=== PATIENT | male | born 1980 | race Caucasian/White ===

== ENCOUNTER 2019-12-23 14:55 | Emergency (ER) | payer OTHER ==
--- OUTSIDE RECORDS SUMMARY | 2019-12-23 15:00 | XMS ---
:1980 Author Organization [facility] Care Team Providers Name Role Phone Joo GUILLERMO Unavailable Unavailable Danyel Unavailable [phone] Lisa Lisa MD Unavailable Unavailable Sloan R MD Unavailable Unavailable Sloan R MD Unavailable Unavailable Sloan R MD Unavailable Unavailable Sloan R MD Unavailable Unavailable Sloan R MD Unavailable Unavailable Sloan R MD Unavailable Unavailable STEFANY FELIPE Unavailable Unavailable MENLA SARBJIT Unavailable Unavailable HHHVCC Unavailable Unavailable HHHVCC Unavailable Unavailable MD SOMMER Unavailable Unavailable Menla Unavailable Unavailable Menla Unavailable Unavailable Menla Unavailable Unavailable Menla Unavailable Unavailable Menla Unavailable Unavailable Menla Unavailable Unavailable Polo Estevez DPM Unavailable Unavailable Polo Estevez DPM Unavailable Unavailable Polo Estevez DPM Unavailable Unavailable Stefany MD Unavailable Unavailable Stefany Unavailable Unavailable MARK TRAMMELL Unavailable Unavailable KURAS Unavailable Unavailable Re-disclosure Warning The records that you are about to access may contain information from federally- assisted alcohol or drug abuse programs. If such information is present, then the following federally mandated warning applies: This information has been disclosed to you from records protected by federal confidentiality rules (42 CFR part 2). The federal rules prohibit you from making any further disclosure of this information unless further disclosure is expressly permitted by the written consent of the person to whom it pertains or as otherwise permitted by 42 CFR part 2. A general authorization for the release of medical or other information is NOT sufficient for this purpose. The Federal rules restrict any use of the information to criminally investigate or prosecute any alcohol or drug abuse patient.The records that you are about to access may contain highly sensitive health information, the redisclosure of which is protected by Article 27-F of the [facility] Public Health law. If you continue you may haveaccess to information: Regarding HIV / AIDS; Provided by facilities licensed or operated by the [facility] Office of Mental Health; or Provided by the [facility] Office for People With Developmental Disabilities. If such information is present, then the following [facility] mandated warning applies: This information has been disclosed to you from confidential records which are protected by state law. State law prohibits you from making any further disclosure of this information without the specific written consent of the person to whom it pertains, or as otherwise permitted by law. Any unauthorized further disclosure in violation of state law may result in a fine or fci sentence or both. A general authorization for the release of medical or other information is NOT sufficient authorization for further disclosure. Encounters Encounter Providers Location Date Indications Data Source(s ) Outpatient Attender: MHAW9 12/07/2019 GSI ([facility] 03:36:38 PM Care [facility] EDT Patient admitted. Outpatient Attender: MHAW9 [facility] 11/18/2019 04:01:49 PM [facility]SI ([facility]) Patient admitted. Outpatient Attender: MMV9 [facility] 11/18/2019 04:01:47 PM [facility]SI ([facility]) Patient admitted. Outpatient Attender: MHAW9 [facility] 11/02/2019 02:32:43 PM GSI ([facility]) Patient admitted. Outpatient Attender: MMVH9 [facility] 11/02/2019 02:32:40 PM [facility]SI ([facility]) Patient admitted. Outpatient Attender: MHAW9 [facility] 10/03/2019 11:22:28 AM [facility]SI ([facility] EDT [facility]) Patient admitted. Attender: [address] 08/20/2019 NEXTGEN (Judit Estevez DPM 12:44:00 PM EDT - [facility] 08/20/2019 Medical 12:44:00 PM EDT Center) Attender: Max Positive 08/14/2019 [facility]EXTGEN ( [facility] 10:21:00 AM EDT - [facility] 08/14/2019 Medical 10:21:00 AM EDT Center) Attender: Max Positive 08/10/2019 NEXTGEN ( [facility] 10:42:00 AM EDT - [facility] [facility] 08/10/2019 Medical 10:42:00 AM EDT Center) Attender: Max Positive 07/20/2019 NEXTGEN ( [facility] 12:43:00 PM EDT - [place] [facility] 07/20/2019 Medical 12:43:00 PM EDT Center) Attender: Max Positive 07/20/2019 NEXTGEN ( [facility] 12:03:00 PM EDT - [place] [facility] 07/20/2019 Medical 12:03:00 PM EDT Center) Attender: Max Positive 07/10/2019 NEXTGEN ( [facility] 10:19:00 AM EDT - [place] [facility] 07/10/2019 Medical 10:19:00 AM EDT Center) Attender: Max Positive 07/02/2019 NEXTGEN ( [facility] 11:27:00 AM EDT - [place] [facility] 07/02/2019 Medical 11:27:00 AM EDT Center) Attender: Max Positive 07/02/2019 NEXTGEN ( [facility] 10:17:00 AM EDT - [place] [facility] 07/02/2019 Medical 10:17:00 AM EDT Center) Attender: Max Positive 06/26/2019 NEXTGEN ( [facility] 10:34:00 AM EDT - [place] [facility] 06/26/2019 Medical 10:34:00 AM EDT Center) Attender: Max Positive 06/25/2019 NEXTGEN ( [facility] 10:05:00 AM EDT - [place] [facility] 06/25/2019 Medical 10:05:00 AM EDT Center) Attender: Max Positive 06/17/2019 NEXTGEN ( [facility] D[facility] 09:38:00 AM EDT - [place] [facility] 06/17/2019 Medical 09:38:00 AM EDT Center) Attender: Max Positive 06/15/2019 NEXTGEN ( [facility] D[facility] 03:19:00 PM EDT - [place] [facility] 06/15/2019 Medical 03:19:00 PM EDT Center) Outpatient Attender: BELKIS Ge 06/09/2019 [facility] Tip valery TAMAYO 02:57:00 PM EDT Medical Center MARIAAdmitter: BELKIS TRAMMELLReferrer: BELKIS TRAMMELL OutpatientOFFICE/O Attender: Sarbjit [facility] 06/09/2019 NE XTGEN ([facility] VISIT, Menla 02:57:00 PM EDT - [facility] EST 06/09/2019 Medical 02:57:00 PM EDT Center) Outpatient 06/09/2019 [facility] 10:43:00 AM EDT Medical C enter Outpatient 06/09/2019 [facility] 12:00:00 AM EDT Medical C enter Attender: Max Cruz 06/08/2019 NEXTGEN ( [facility] 01:45:00 PM EDT - [place] [facility] 06/08/2019 Medical 01:45:00 PM EDT Center) Outpatient 06/08/2019 [facility] 11:42:00 AM EDT Medical C enter Outpatient Attender: BELKIS Ge 06/08/2019 [facility] Tip valery MARK TAMAOY 10:35:00 AM EDT Medical Center MARIAAdmitter: BELKIS TRAMMELLReferrer: BELKIS TRAMMELL Attender: Sarbjit [facility] 06/08/2019 NEXTGEN (S aint [place] 10:35:00 AM EDT - [facility] 06/08/2019 Medical 10:35:00 AM EDT Center) Outpatient 06/08/2019 [facility] 12:00:00 AM EDT Medical C enter Attender: Max Cruz 06/04/2019 NEXTGEN ( [facility] D[facility] 08:56:00 AM EDT - [place] [facility] 06/04/2019 Medical 08:56:00 AM EDT Center) Attender: Max Positive 06/01/2019 NEXTGEN ( [facility] 11:15:00 AM EDT - [place] [facility] 06/01/2019 Medical 11:15:00 AM EDT Center) Attender: Max Positive 05/27/2019 NEXTGEN ( [facility] 11:31:00 AM EDT - [place] [facility] 05/27/2019 Medical 11:31:00 AM EDT Center) Attender: Sarbjit Leal [facility] 05/26/2019 NEXTGEN (S aint [place] 04:28:00 PM EDT - [facility] 05/26/2019 Medical 04:28:00 PM EDT Center) Attender: Max Positive 05/25/2019 NEXTGEN ( [facility] 03:41:00 PM EDT - [place] [facility] 05/25/2019 Medical 03:41:00 PM EDT Center) Attender: Max Positive 05/22/2019 NEXTGEN ( [facility] 02:09:00 PM EDT - [place] [facility] 05/22/2019 Medical 02:09:00 PM EDT Center) Attender: Max Positive 05/21/2019 NEXTGEN ( [facility] 01:16:00 PM EDT - [place] [facility] 05/21/2019 Medical 01:16:00 PM EDT Center) Outpatient 05/18/2019 [facility] 10:56:00 AM EDT Medical C enter Outpatient 05/18/2019 [facility] 12:00:00 AM EDT Medical C enter Attender: Max Positive 05/15/2019 NEXTGEN ( [facility] 11:18:00 AM EDT - [place] [facility] 05/15/2019 Medical 11:18:00 AM EDT Center) Attender: Max Positive 05/12/2019 NEXTGEN ( [facility] 04:07:00 PM EDT - [place] [facility] 05/12/2019 Medical 04:07:00 PM EDT Center) Outpatient 05/11/2019 [facility] 12:24:00 PM EDT Medical C enter Outpatient 05/11/2019 [facility] 12:00:00 AM EDT Medical C enter Attender: Max Positive 05/08/2019 NEXTGEN ( [facility] 11:31:00 AM EST - [place] [facility] 05/08/2019 Medical 11:31:00 AM EST Center) Attender: Max Positive 05/05/2019 NEXTGEN ( [facility] 03:44:00 PM EST - [place] [facility] 05/05/2019 Medical 03:44:00 PM EST Center) Outpatient 05/05/2019 [facility] 11:35:00 AM EST Medical C enter Outpatient 05/05/2019 [facility] 12:00:00 AM EST Medical C enter Attender: Max Positive 05/01/2019 NEXTGEN ( [facility] 11:03:00 AM EST - [place] [facility] 05/01/2019 Medical 11:03:00 AM EST Center) Outpatient 04/30/2019 [facility] 03:17:00 PM EST Medical C enter Outpatient 04/30/2019 [facility] 12:00:00 AM EST Medical C enter Attender: Max Positive 04/24/2019 NEXTGEN ( [facility] 02:39:00 PM EST - [place] [facility] 04/24/2019 Medical 02:39:00 PM EST Center) Attender: Max Positive 04/23/2019 NEXTGEN ( [facility] 12:45:00 PM EST - [place] [facility] 04/23/2019 Medical 12:45:00 PM EST Center) Outpatient Attender: MHAW9 04/21/2019 [facility] ([facility] 11:50:25 AM EST [facility]) Patient admitted. Attender: Max Positive 04/17/2019 NEXTGEN ( [facility] 02:49:00 PM EST - [place] [facility] 04/17/2019 Medical 02:49:00 PM EST Center) Attender: Max Positive 04/14/2019 NEXTGEN ( [facility] 04:56:00 PM EST - [place] [facility] 04/14/2019 Medical 04:56:00 PM EST Center) Attender: Max Positive 04/10/2019 NEXTGEN ( [facility] 10:18:00 AM EST - [place] [facility] 04/10/2019 Medical 10:18:00 AM EST Center) Outpatient Attender: MARY Ge 04/09/2019 [facility] RODRIGUEZdmitter: 09:35:00 AM EST Med ica Center MARY Buenorer: MARY GUILLERMO Attender: Max Positive 04/08/2019 NEXTGEN ( [facility] 02:21:00 PM EST - [place] [facility] 04/08/2019 Medical 02:21:00 PM EST Center) Outpatient Attender: MARY Ge 04/08/2019 [facility] JENNIFERdmitter: 11:44:00 AM EST Med [facility] Center MARY Monroeferrer: Rosalio Lisa MD Outpatient Attender: BELKIS Ge 04/07/2019 [facility] FLORESDORI TAMAYO 01:12:00 PM EST Medical Center MARIAAdmitter: BELKIS TRAMMELLReferrer: BELKIS TRAMMELL OutpatientOFFICE/O Attender: Sarbjit [facility] 04/07/2019 NE XTGEN ([facility] UTPATIENT VISIT, Menla 01:12:00 PM EST - J osep EST 04/07/2019 Medical 01:12:00 PM EST Center) Outpatient 04/07/2019 [facility] 11:49:00 AM EST Medical C enter Outpatient 04/07/2019 [facility] 12:00:00 AM EST Medical C enter OutpatientOFFICE/O Attender: Felipe Positive 04/06/2019 N EXTGEN ([facility] Stefany ALEJANDRE Directions 12:56:00 PM EST - J osep EST 04/06/2019 Medical 12:56:00 PM EST Center) Attender: Max Positive 04/03/2019 NEXTGEN ( [facility] Danyel Directions 02:06:00 PM EST - [place] [facility] 04/03/2019 Medical 02:06:00 PM EST Center) Attender: Sarbjit [address] [place] [address] 03/31/2019 NEXTGEN (S opal [place] 03:55:00 PM EST - [facility] 03/31/2019 Medical 03:55:00 PM EST Center) Attender: Max Positive 03/31/2019 NEXTGEN ( [facility]any[facility] Directions 09:30:00 AM EST - [place] [facility] 03/31/2019 Medical 09:30:00 AM EST Center) Outpatient Attender: ANNIA Ge 03/30/2019 [facility] MENLA 02:05:00 PM EST Medical C enter MIKEAdmitter: ANNIA Dukesferrer: ANNIA SCHAFFER OutpatientOFFICE/O Attender: Sarbjit [facility] 03/30/2019 NE XTGEN ([facility] UTPATIENT VISIT, [place] 02:05:00 PM EST - J osephs EST 03/30/2019 Medical 02:05:00 PM EST Center) Outpatient 03/30/2019 [facility] 10:28:00 AM EST Medical C enter Outpatient 03/30/2019 [facility] 12:00:00 AM EST Medical C enter Attender: Max Positive 03/27/2019 NEXTGEN ( [facility] 12:19:00 PM EST - [place] [facility] 03/27/2019 Medical 12:19:00 PM EST Center) Attender: Max Positive 03/25/2019 NEXTGEN ( [facility] 10:08:00 AM EST - [place] [facility] 03/25/2019 Medical 10:08:00 AM EST Center) Attender: Max Positive 03/24/2019 NEXTGEN ( [facility] 04:20:00 PM EST - [place] [facility] 03/24/2019 Medical 04:20:00 PM EST Center) Attender: Max Positive 03/20/2019 NEXTGEN ( [facility] 01:45:00 PM EST - [place] [facility] 03/20/2019 Medical 01:45:00 PM EST Center) Attender: Max Positive 03/19/2019 NEXTGEN ( [facility] 04:36:00 PM EST - [place] [facility] 03/19/2019 Medical 04:36:00 PM EST Center) Attender: Max Positive 03/13/2019 NEXTGEN ( [facility] 02:01:00 PM EST - [place] [facility] 03/13/2019 Medical 02:01:00 PM EST Center) Attender: Max Positive 03/11/2019 NEXTGEN ( [facility] 03:23:00 PM EST - [place] [facility] 03/11/2019 Medical 03:23:00 PM EST Center) Attender: Felipe Positive 03/09/2019 NEXTGEN ( [facility] Stefany MD Directions 12:55:00 PM EST - [facility] 03/09/2019 Medical 12:55:00 PM EST Center) Attender: Max Positive 03/09/2019 NEXTGEN ( [facility] 09:06:00 AM EST - [place] [facility] 03/09/2019 Medical 09:06:00 AM EST Center) Outpatient Attender: MHAW9 03/06/2019 [facility]SI ([facility] 01:11:26 PM EST [facility]) Patient admitted. Outpatient Attender: MMVH9 [facility] 03/06/2019 01:11:23 PM [facility] ([facility]) Patient admitted. Outpatient Attender: MHAW9 [facility] 03/06/2019 01:11:06 PM [facility] ([facility]) Patient admitted. Outpatient Attender: MMVH9 [facility] 03/06/2019 01:11:04 PM [facility]SI ([facility]) Patient admitted. Outpatient Attender: FELIPE STEFANY H 03/04/2019 Leonel Savage ARNABAdmitter: FELIPE 12:00:00 PM [facility] Medical Center STEFANY FELIPE Attender: Felipe Stefany Positive 03/04/2019 LIV TGFELICITA ([facility] 12:00:00 PM EST - [facility] 03/04/2019 Medical 12:00:00 PM EST Center) Attender: Max Howard Positive 02/27/2019 NEXT GEN ([facility] 01:51:00 PM EST - [facility] 02/27/2019 Medical 01:51:00 PM EST Center) Attender: Max Howard Positive 02/27/2019 NEXT GEN ([facility] 09:43:00 AM EST - [facility] 02/27/2019 Medical 09:43:00 AM EST Center) Attender: Max Howard Positive 02/20/2019 NEXT GEN ([facility] 11:54:00 AM EST - [facility] 02/20/2019 Medical 11:54:00 AM EST Center) Attender: Max Howard Positive 02/19/2019 NEXT GEN ([facility] 04:59:00 PM EST - [facility] 02/19/2019 Medical 04:59:00 PM EST Center) Attender: Max Howard Positive 02/13/2019 NEXT GEN ([facility] 11:15:00 AM EST - [facility] 02/13/2019 Medical 11:15:00 AM EST Center) Outpatient Attender: FELIPE MCCALL H 02/09/2019 Leonel MAXWELLABAdmitter: FELIPE 12:00:00 PM [facility] Medical Center STEFANY FELIPE Attender: Felipe Stefany Positive 02/09/2019 NEX TGEN ([facility] 12:00:00 PM EST - [facility] 02/09/2019 Medical 12:00:00 PM EST Center) Attender: Max Carranza Positive 02/09/2019 NEXT GEN ([facility] 10:39:00 AM EST - [facility] 02/09/2019 Medical 10:39:00 AM EST Center) Emergency H 12/23/2018 [facility] 12:02:00 PM EDT - Medical Center 12/23/2018 02:15:00 PM EDT Patient discharged. Outpatient Attender: STEPHANIA PETTIT 08/11/2018 10:49:00 AM Francis SHIRAZdmitter: ROSALIO MURPHY EDT - 03/18/2019 Hospital 12:55:00 PM EST Patient discharged. Medications Medication Brand Start Product Dose Route [facility] Indications Reaction Description Data Name Date Form Instructions Instructions Source(s) Naltrexone naltre . ORAL active take 1 N EXTGEN hydrochlori xone 2019 {tbl} tablet by (S aint de 50 MG 50 mg 12:00: oral route Atiya sephs Oral Tablet tablet 00 AM every day [facility] naltrexone EST [place]) 50 mg tablet Naltrexone naltre . ORAL complet take 1 NEXTGEN hydrochlori xone 2019 {tbl} ed tablet by (S aint de 50 MG 50 mg 12:00: oral route Atiya sephs Oral Tablet tablet 00 AM every day [facility] naltrexone EST [place]) 50 mg tablet Medication administered onsite Naltrexone naltrexone 03/09/2019 1.00 ORAL completed take 1 NEXTGEN hydrochloride 50 mg tablet 12:00:00 AM {tbl} tablet ([facility] 50 MG Oral EST by oral [place] [facility] Tablet route Medical naltrexone 50 every Cente r) mg tablet day Insurance Providers Payer name Policy type Policy ID Covered Covered alliance party's Policy P ralph / Coverage alliance party ID relationship to Obrien Inf ormation type obrien [place]IA [place] [id number] SP [id number] 300 HEALTH NON CAP [place] CARE W [id number] 01 [id number] [place] [id number] 01 [id number] W [id number] 01 [id number] [place] CARE W [id number] 01 [id number] [place] W [id number] 01 [id number] [place] W [id number] 01 [id number] 300 [place] CARE W [id number] 01 [id number] SELF PAY 0000 Self 0000 MEDICAID OP [id number] Self [id number] [facility] MAR[place] [id number] Self [id number] CARE BETTER [id number] PT [id number] HEALTH/DOMINICK IS SELF PAY 0 Self 0 MEDICAID OP [id number] Self [id number] [facility] MARIA VICTOR[place] [id number] Self [id number] CARE Medicaid [id number] S [id number] Regular Clinic Visit MVP Medicaid [id number] S [id number] Z [facility] Care [facility] [id number] S [id number] FFS Medicaid Problems, Conditions, and Diagnoses Code Display Name Description Problem Type Effective Data Dates Source(s) Z11.4 Encounter for ENCOUNTER FOR Diagnosis 06/09/2019 [facility] screening for human SCREENING FOR HUMAN 02:57:0 0 PM [facility] immunodeficiency IMMUNODEFICIENCY [facility] dical virus [HIV] VIRUS Center Z71.3 Dietary counseling DIETARY COUNSELING Diagnosis 0 [facility] and surveillance AND SURVEILLANCE 02:57:00 PM [facility] Z68.21 Body mass index BODY MASS INDEX Diagnosis 06/09/2019 Yaneth t (BMI) 21.0-21.9, (BMI) 21.0-21.9, 02:57:00 PM [facility] G35 Multiple sclerosis MULTIPLE SCLEROSIS Diagnosis 0 [facility] 02:57:00 PM [facility] Z68.20 Body mass index BODY MASS INDEX Diagnosis 03/30/2019 Yaneth t (BMI) 20.0-20.9, (BMI) 20.0-20.9, 02:05:00 PM [facility] F12.20 Cannabis dependence, CANNABIS DEPENDENCE, Diagnosis 03/05 uncomplicated UNCOMPLICATED 12:00:00 PM [facility] Z53.21 Procedure and PROC/TRTMT NOT CRD Diagnosis 12/23/2018 Leonel nt treatment not OUT D/T PT LV BEF 12:02:00 PM Tip ephs carried out due to SEEN BY [facility] patient leaving [facility] prior to being seen by health care provider F19.10 Other psychoactive OTHER PSYCHOACTIVE Diagnosis 9 [facility] substance abuse, SUBSTANCE ABUSE, 12:02:00 PM [facility] uncomplicated UNCOMPLICATED [facility] Surgeries/Procedures Procedure Description Date Indications Data Source(s) OFFICE/OUTPATIENT VISIT, 06/09/2019 NEX TGEN ([facility] EST 12:00:00 AM EDT [facility] - 06/09/2019 Center) 12:00:00 AM EDT OFFICE/OUTPATIENT VISIT, 04/07/2019 NEX TGEN ([facility] EST 12:00:00 AM EST [facility] - 04/07/2019 [place]) 12:00:00 AM EST Psychotherapy (30 Mins) 04/06/2019 NEXT GEN ([facility] W/ E&M 12:00:00 AM EST [facility] - 04/06/2019 [place]) 12:00:00 AM EST OFFICE/OUTPATIENT VISIT, 04/06/2019 NEX TGEN ([facility] EST 12:00:00 AM EST [facility] - 04/06/2019 [place]) 12:00:00 AM EST OFFICE/OUTPATIENT VISIT, 03/30/2019 NEX TGEN ([facility] EST 12:00:00 AM EST [facility] - 03/30/2019 [place]) 12:00:00 AM EST Results ID Date Data Source HematologyRou.[id number] 06/11/2019 09:58:00 AM EDT Leonel [facility] 0400 Name Value Range Interpretation Code Description Data Gabriela rce(s) Supporting Document(s ) UNK [id number] <content [facility] styleCode="Bold" Medical Cente r >Absolute Lymphocyte Count </content>1932 Cells<content styleCode="Itali cs"> (850-3900 Cells)</content> ID Date Data Source Liver 04/07/2019 03:11:00 PM EST [facility] [id number] Name Value Range Interpretation Description Data Sup porting Code Source(s) Document(s ) Alkaline 38-126 <content [facility] phosphatase styleCode="Bold"> Hussein [Enzymatic Alkaline Medical activity/volume] Phosphatase (ALP) Cente r in Serum or Plasma </content>68 IU/L<content styleCode="Italic s"> (38-126 IU/L)</content> Alanine 7-50 <content [facility] aminotransferase styleCode="Bold"> Alfredo hs [Enzymatic Alanine Medical activity/volume] Aminotransferase Center in Serum or Plasma (ALT) </content>13 IU/L<content styleCode="Italic s"> (7-50 IU/L)</content> Aspartate 17-59 <content [facility] aminotransferase styleCode="Bold"> Alfredo hs [Enzymatic Aspartate Medical activity/volume] Aminotransferase Center in Serum or Plasma (AST) </content>20 IU/L<content styleCode="Italic s"> (17-59 IU/L)</content> Bilirubin.total 0.2-1.3 Below low <content [facility] [Mass/volume] in normal styleCode="Bold"> Alfredo hs Serum or Plasma Bilirubin Total Medical </content>< 0.2 Center MG/DL L<content styleCode="Italic s"> (0.2-1.3 MG/DL)</content> Albumin 3.5-5.0 <content [facility] [Mass/volume] in styleCode="Bold"> Alfredo hs Serum or Plasma Albumin Medical </content>3.7 Center G/DL<content styleCode="Italic s"> (3.5-5.0 G/DL)</content> ID Date Data Source [id number] 04/07/2019 03:11:00 PM EST Yaneth t [facility] Name Value Range Interpretation Description Data Sup porting Code Source(s) Document(s ) Thyrotropin 0.465-4. <content [facility] [Units/volume] 68 styleCode="Beto Hussein in Serum or d">Thyroid Medical Plasma by Stimulating Center Detection Hormone limit <= 0.05 </content>0.77 mIU/L 4 MIU/L<content styleCode="Jackelyn lics"> (0.465-4.68 MIU/L)</conten t> ID Date Data Source HematologySpeci.[id number] 04/07/2019 03:11:00 PM EST Leonel nt [facility] 0-0500 Name Value Range Interpretation Description Data Sup porting Code Source(s) Document(s ) Erythrocyte < 15 <content [facility] sedimentation styleCode="Bold" Hussein rate by >Erythrocyte [facility] method Rate (ESR) </content>3 MM/hr<content styleCode="Itali cs"> (< 15 MM/hr)</content> C reactive < 3.0 <content [facility] protein styleCode="Bold" Hussein [Mass/volume] in >C-Reactive Medical Serum or Plasma Protein Center </content>< 0.10 MG/L<content styleCode="Itali cs"> (< 3.0 MG/L)</content> ID Date Data Source HematologyRou.[id number] 04/07/2019 03:11:00 PM SEAN Castaneda [facility] 0500 Name Value Range Interpretation Description Data Sup porting Code Source(s) Document(s ) Leukocytes 4.4-11.0 <content [facility] [#/volume] in styleCode="Bold Hussein Blood by ">White Blood Medical Automated count Cell Count Center </content>8.78 KCUMM<content styleCode="Ital ics"> (4.4-11.0 KCUMM)</content > Erythrocytes 4.4-5.9 <content [facility] [#/volume] in styleCode="Bold Hussein Blood by ">Red Blood Medical Automated count Cell Count Center </content>4.65 MCUMM<content styleCode="Ital ics"> (4.4-5.9 [facility])</content > Hematocrit 41.0-53. <content [facility] [Volume 0 styleCode="Bold Hussein Fraction] of ">Hematocrit Medical Blood by </content>41.3 Center Automated count %<content styleCode="Ital ics"> (41.0-53.0 %)</content> Hemoglobin 13.5-17. <content [facility] [Mass/volume] in 5 styleCode="Bold Hussein Blood ">Hemoglobin Medical </content>14.1 Center G/DL<content styleCode="Ital ics"> (13.5-17.5 G/DL)</content> Erythrocyte mean 26.0-34. <content [facility] corpuscular 0 styleCode="Bold Hussein hemoglobin ">Mean Medical [Entitic mass] Corposcular Center by Automated Hemoglobin count </content>30.3 PG<content styleCode="Ital ics"> (26.0-34.0 PG)</content> Erythrocyte mean 80.0-100 <content [facility] corpuscular .0 styleCode="Bold Hussein volume [Entitic ">Mean Medical volume] by Corpuscular Center Automated count Volume </content>88.8 FL<content styleCode="Ital ics"> (80.0-100.0 FL)</content> Erythrocyte mean 32.0-37. <content [facility] corpuscular 0 styleCode="Bold Hussein hemoglobin ">Mean Corpus. Medical concentration Hgb Center [Mass/volume] by Concentration Automated count (MCHC) </content>34.1 G/DL<content styleCode="Ital ics"> (32.0-37.0 G/DL)</content> Erythrocyte 11.5-14. <content [facility] distribution 5 styleCode="Bold Hussein width [Ratio] by ">Red Cell Medical Automated count Distribution Center Width </content>12.8 %<content styleCode="Ital ics"> (11.5-14.5 %)</content> Platelet mean 8.0-11.0 Above high <content [facility] volume [Entitic normal styleCode="Bold Hussein volume] in Blood ">Mean Platelet Medical by Automated Volume Center count </content>12.0 FL H<content styleCode="Ital ics"> (8.0-11.0 FL)</content> Platelets <content [facility] [#/volume] in styleCode="Bold Hussein Blood by ">Platelet Medical Automated count Count Center </content>Test not performed. [facility] (Reference Range: not available)
Neutrophils 36-66 <content Saint [#/volume] in styleCode="Bold Hussein Blood by ">Neutrophil Medical Automated count </content>58.9 Center %<content styleCode="Ital ics"> (36-66 %)</content> UNK 1.6-7.3 <content Saint styleCode="Bold Hussein ">Neutrophil Medical Count Center </content>5.17 KCUMM<content styleCode="Ital ics"> (1.6-7.3 KCUMM)</content > Lymphocytes 24.0-44. <content [facility] [#/volume] in 0 styleCode="Bold Hussein Blood by ">Lymphocyte Medical Automated count </content>25.6 Center %<content styleCode="Ital ics"> (24.0-44.0 %)</content> UNK 1.0-4.8 <content Saint styleCode="Bold Hussein ">Lymphocyte Medical Count Center </content>2.25 KCUMM<content styleCode="Ital ics"> (1.0-4.8 [facility]M)</content > Eosinophils 0-5.0 Above high <content Saint [#/volume] in normal styleCode="Bold Hussein Blood by ">Eosinophil Medical Automated count </content>5.4 % Center H<content styleCode="Ital ics"> (0-5.0 %)</content> Monocytes 3.0-10.0 <content [facility] [#/volume] in styleCode="Bold Hussein Blood by ">Monocyte Medical Automated count </content>8.7 Center %<content styleCode="Ital ics"> (3.0-10.0 %)</content> UNK 0.2-0.9 <content Saint styleCode="Bold Hussein ">Monocyte Medical Count Center </content>0.76 KCUMM<content styleCode="Ital ics"> (0.2-0.9 [facility]M)</content > UNK 0.0-0.3 <content Saint styleCode="Bold Hussein ">Basophil Medical Count Center </content>0.10 KCUMM<content styleCode="Ital ics"> (0.0-0.3 KCUMM)</content > UNK 0.0-0.6 <content Saint styleCode="Bold Hussein ">Eosinophil Medical Count Center </content>0.47 KCUMM<content styleCode="Ital ics"> (0.0-0.6 [facility]M)</content > Basophils 0.0-1.0 Above high <content Saint [#/volume] in normal styleCode="Bold Hussein Blood by ">Basophil Medical Automated count </content>1.1 % Center H<content styleCode="Ital ics"> (0.0-1.0 %)</content> UNK < 1 <content Saint styleCode="Bold Hussein ">Immature Medical Granulocyte Center Ratio </content>0.3 %<content styleCode="Ital ics"> (< 1 %)</content> UNK 0.0 <content Saint styleCode="Bold Hussein ">Nucleated Red Medical Blood Cell Center Count </content>0.00 KCUMM<content styleCode="Ital ics"> (0.0 KC[facility]M)</content > UNK 0-0.1 <content Saint styleCode="Bold Hussein ">Immature Medical Granulocyte Center Count </content>0.03 KCUMM<content styleCode="Ital ics"> (0-0.1 [facility]M)</content > UNK 0 <content Saint styleCode="Bold Hussein ">Nucleated Red Medical Blood Cell Center </content>0.0 /100<content styleCode="Ital ics"> (0 /100)</content> ID Date Data Source GFR(Creatinine).[id number] 04/07/2019 03:11:00 PM EST [facility] 0-0500 Name Value Range Interpretation Code Description Data Gabriela rce(s) Supporting Document(s ) UNK > 60 <content [facility] styleCode="Bold"> Medical Cent er EGFR </content>101 GFR<content styleCode="Italic s"> (> 60 GFR)</content> ID Date Data Source CHMROUTINECCDA.[id number] 04/07/2019 03:11:00 PM [facility] -0500 Name Value Range Interpretation Description Data Sup porting Code Source(s) Document(s ) UNK 2.3-3.5 <content [facility] Hussein styleCode="Bold Medical ">Globulin Center </content>2.3 G/DL<content styleCode="Ital ics"> (2.3-3.5 G/DL)</content> UNK >= 1.0 <content [facility] Hussein styleCode="Bold Medical ">AG Ratio Center </content>1.6 <content styleCode="Ital ics"> (>= 1.0 )</content> Protein 6.3-8.2 Below low normal <content [facility] [Mass/volum styleCode="Bold Medical e] in Serum ">Total Protein Center or Plasma </content>6.0 G/DL L<content styleCode="Ital ics"> (6.3-8.2 G/DL)</content> UNK 4.2-5.8 <content [facility] Hussein styleCode="Bold Medical ">Hemoglobin Center A1C </content>5.5 %<content styleCode="Ital ics"> (4.2-5.8 %)</content> ID Date Data Source [facility].[id number] 04/07/2019 03:11:00 PM EST [facility] Center Name Value Range Interpretation Description Data Sup porting Code Source(s) Document(s ) Sodium 137-145 <content Saint [Moles/volume] in styleCode="Bold"> Danny phs Serum or Plasma Sodium Medical </content>139 Center MEQ/L<content styleCode="Italic s"> (137-145 MEQ/L)</content> Chloride 98-107 <content Saint [Moles/volume] in styleCode="Bold"> Danny phs Serum or Plasma Chloride Medical </content>107 Center MEQ/L<content styleCode="Italic s"> (98-107 MEQ/L)</content> Carbon dioxide, 22-30 <content Saint total styleCode="Bold"> Hussein [Moles/volume] in Carbon Dioxide Medical Serum or Plasma </content>26 Center MEQ/L<content styleCode="Italic s"> (22-30 MEQ/L)</content> Potassium 3.5-5.3 <content [facility] [Moles/volume] in styleCode="Bold"> Danny phs Serum or Plasma Potassium Medical </content>4.2 Center MEQ/L<content styleCode="Italic s"> (3.5-5.3 MEQ/L)</content> Glucose 74-106 <content Saint [Mass/volume] in styleCode="Bold"> Alfredo hs Serum or Plasma Glucose Medical </content>105 Center MG/DL<content styleCode="Italic s"> (74-106 MG/DL)</content> UNK 9-20 <content Saint styleCode="Bold"> Hussein BUN </content>20 Medical MG/DL<content Center styleCode="Italic s"> (9-20 MG/DL)</content> Calcium 8.4-10. <content Saint [Mass/volume] in 2 styleCode="Bold"> Alfredo hs Serum or Plasma Calcium Medical </content>9.4 Center MG/DL<content styleCode="Italic s"> (8.4-10.2 MG/DL)</content> Creatinine 0.5-1.3 <content [facility] [Mass/volume] in styleCode="Bold"> Alfredo hs Serum or Plasma Creatinine Medical </content>0.9 Center MG/DL<content styleCode="Italic s"> (0.5-1.3 MG/DL)</content> UNK > 60 <content Saint styleCode="Bold"> Hussein EGFR Medical </content>101 Center GFR<content styleCode="Italic s"> (> 60 GFR)</content> Alanine 7-50 <content Saint aminotransferase styleCode="Bold"> Alfredo hs [Enzymatic Alanine Medical activity/volume] Aminotransferase Center in Serum or Plasma (ALT) </content>13 IU/L<content styleCode="Italic s"> (7-50 IU/L)</content> Aspartate 17-59 <content [facility] aminotransferase styleCode="Bold"> Alfredo hs [Enzymatic Aspartate Medical activity/volume] Aminotransferase Center in Serum or Plasma (AST) </content>20 IU/L<content styleCode="Italic s"> (17-59 IU/L)</content> Alkaline 38-126 <content [facility] phosphatase styleCode="Bold"> Hussein [Enzymatic Alkaline Medical activity/volume] Phosphatase (ALP) Cente r in Serum or Plasma </content>68 IU/L<content styleCode="Italic s"> (38-126 IU/L)</content> Albumin 3.5-5.0 <content [facility] [Mass/volume] in styleCode="Bold"> Alfredo hs Serum or Plasma Albumin Medical </content>3.7 Center G/DL<content styleCode="Italic s"> (3.5-5.0 G/DL)</content> Bilirubin.total 0.2-1.3 Below low <content [facility] [Mass/volume] in normal styleCode="Bold"> Alfredo hs Serum or Plasma Bilirubin Total Medical </content>< 0.2 Center MG/DL L<content styleCode="Italic s"> (0.2-1.3 MG/DL)</content> Procedure Social History Code Duration Value Status Description Data Source(s ) Caffeine Use 08/20/2019 completed coffee, 1 cup NEXTGEN ( [facility] Details 12:00:00 AM [facility]) Smoking 08/20/2019 Unknown if ever completed Unknown if ever NEXT GEN ([facility] 12:00:00 AM smoked smoked [facility]) 06/09/2019 Occasional completed Occasional NEXTGEN ([facility] 12:00:00 AM cigarette smoker cigarette smoker [facility]) Smoking 12/23/2018 Daily Smoker completed Daily Smoker [facility] 12:38:00 PM Medical [facility] Vital Signs ID Date Data Source UNK Name Value Range Interpretation Code Description Data Source(s) Oxygen saturation 96 % 96 % NEXTGEN ([facility] in Arterial blood [facility] by Pulse oximetry Center) Body mass index 21.77 kg/m2 21.77 kg/m2 [facility] [place] ([facility] (BMI) [Ratio] [facility]) Respiratory rate 16 /min 16 /min [facility] ([facility]) Body temperature 36.56 Willa 36.56 Willa [facility] ([facility]) Heart rate 86 /min 86 /min [facility] ([facility]) Diastolic blood 56 mm[Hg] 56 mm[Hg] NEXTGEN ( [facility] pressure [facility]) Systolic blood 96 mm[Hg] 96 mm[Hg] [facility] [place] ([facility]) Body weight 74.843 kg 74.843 kg [facility] ([facility]) Body height 185.42 cm 185.42 cm [facility] ([facility]) Oxygen saturation 97 % 97 % [facility] ([facility] in Arterial blood [facility] by Pulse oximetry Center) Body mass index 21.11 kg/m2 21.11 kg/m2 [facility] ([facility] (BMI) [Ratio] [facility]) Respiratory rate 18 /min 18 /min [facility] ([facility]) Body temperature 36.50 Willa 36.50 Willa [facility] ([facility]) Heart rate 67 /min 67 /min [facility] ([facility]) Diastolic blood 74 mm[Hg] 74 mm[Hg] NEXTGEN ( [facility] pressure [facility]) Systolic blood 128 mm[Hg] 128 mm[Hg] [facility] [place] (S [facility] pressure [facility]) Body weight 72.575 kg 72.575 kg [facility] ([facility]) Body height 185.42 cm 185.42 cm [facility] ([facility]) Oxygen saturation 97 % 97 % [facility] ([facility] Arterial blood [facility] by Pulse oximetry Center) Body mass index 20.85 kg/m2 20.85 kg/m2 [facility] ([facility] (BMI) [Ratio] [facility]) Respiratory rate 18 /min 18 /min [facility] ([facility]) Body temperature 36.83 Willa 36.83 Willa [facility] ([facility]) Heart rate 68 /min 68 /min [facility] ([facility]) Diastolic blood 66 mm[Hg] 66 mm[Hg] [facility] ( [facility] pressure [facility]) Systolic blood 111 mm[Hg] 111 mm[Hg] [facility] (S aint [facility]) Body weight 71.668 kg 71.668 kg [facility] ([facility]) Body height 185.42 cm 185.42 cm [facility] ([facility]) Body weight 75.027505 kg 75.797239 kg [facility] Body temperature 36.859361 [id number] Willa [facility] Respiratory rate 19 /min 19 /min [facility] Oxygen saturation 98 % 98 % [facility] by Pulse oximetry Heart rate 99 /min 99 /min [facility] Body height 185.701157 185.296085 cm [facility] Medical [place] Diastolic blood 78 mm[Hg] 78 mm[Hg] [facility] pressure Medical [place] Systolic blood 132 mm[Hg] 132 mm[Hg] [facility] Body mass index 22.0 kg/m2 22.0 kg/m2 [facility] Tip rasmussen (BMI) [Ratio] Medical [facility] Patient Treatment Plan of Care Planned Activity Planned Date Details Description Data Source (s) Naltrexone hydrochloride 04/06/2019 12:00:00 NEXTGEN ([facility] 50 MG Oral Tablet AM [facility]) Naltrexone hydrochloride 04/06/2019 12:00:00 NEXTGEN ([facility] 50 MG Oral Tablet AM [facility]) Naltrexone hydrochloride 03/09/2019 12:00:00 NEXTGEN ([facility] 50 MG Oral Tablet AM [facility])
--- NOTE | 2019-12-23 15:02 | TELE ---
HPI Do you have fever,cough or shortness of breath?: No - General Reason For Visit: JOINT PAIN History Source: Patient Past History - Medical History Allergies/Adverse Reactions: Allergies Allergy/AdvReac Type Severity Reaction Status Date / Time No Known Allergies Allergy Verified 04/28/15 17:44 Home Medications: Ambulatory Orders NK [No Known Home Medication] 05/25/13 Anemia: No Asthma: No Cancer: No Cardiac Disorders: No CVA: No COPD: No CHF: No Dementia: No Diabetes: No GI Disorders: No Disorders: No HTN: No Hypercholesterolemia: No Kidney Stones: No Liver Disease: No Seizures: No Thyroid Disease: No - Surgical History Abdominal Surgery: No Appendectomy: No Cardiac Surgery: No Cholecystectomy: No Lung Surgery: No Neurologic Surgery: No Orthopedic Surgery: No - Reproductive History Testicular Surgery: No - Psycho-Social/Smoking History Smoking History: Current every day smoker Have you smoked in the past 12 months: Yes Number of Cigarettes Smoked Daily: 10 Cigars Per Day: 0 'Breaking Loose' booklet given: 04/28/15 Review of Systems - Review of Systems Constitutional: No: Fever Musculoskeletal: No: Joint Pain Neurological: Yes: Weakness, Dizziness *Physical Exam - Physical Exam Respiratory/Chest: negative: Respiratory Distress - Medical Decision Making 12/23/19 15:01 Patient complained of dizziness and possibly an multiple sclerosis flareup adv ised to come to the emergency room for further evaluation and treatment Discharge Diagnosis at time of Disposition: Dizziness - Referrals Follow-up Referral(s): Gautam Estrella MD [Primary Care Provider] - - Patient Instructions - Discharge Disposition: HOME Condition at time of Disposition: Guarded
== END 2019-12-23 15:02 | disposition home or self-care (01) ==
LOC: JVIRT 14:55
DX: R42 Dizziness and giddiness (principal)
CPT/HCPCS: Q3014-GT

== ENCOUNTER 2020-03-03 17:11 | Inpatient (IN) | payer OTHER ==
[2020-03-03 18:52] LABS: CHLORIDE 109 mmol/L (98-107); SODIUM 142 mmol/L (136-145)
[2020-03-03 18:55] LABS: ALBUMIN 3.7 g/dl (3.4-5.0); ANION GAP 7 MMOL/L (8-16); BLOOD UREA NITROGEN 20.9 mg/dL (7-18); CO2 25 mmol/L (21-32); GLUCOSE,RANDOM 96 mg/dL (74-106)
[2020-03-03 18:58] LABS: CREATININE 0.8 mg/dL (0.55-1.3); SGOT/AST 30 U/L (15-37); SGPT/ALT 29 U/L (13-61)
[2020-03-03 18:59] LABS: BASO % 1.2 % (0-2.0); BILIRUBIN,TOTAL 0.2 mg/dL (0.2-1); EOS % 3.2 % (0-4.5); HEMATOCRIT 41.3 % (35.4-49); HEMOGLOBIN 14.5 GM/dL (11.7-16.9); LYMPH % 21.6 % (8-40); MEAN CELL VOLUME 91.5 fl (80-96); MONO % 7.1 % (3.8-10.2); NEUT % 66.9 % (42.8-82.8); PLATELET COUNT 123 K/MM3 (134-434); RBC 4.51 M/mm3 (4.00-5.60); RDW 13.8 % (11.9-15.9); WHITE BLOOD COUNT 7.6 K/mm3 (4.0-10.0)
[2020-03-03 19:00] LABS: TOT PROT 6.5 g/dl (6.4-8.2)
[2020-03-03 19:01] LABS: ALK PHOS 85 U/L (45-117)
[2020-03-03] MEDS ORDERED: SODIUM CHLORIDE 0.9% 500 ML INFUS.BAG IV ONE (19:03)
[2020-03-03] MEDS ORDERED: methylPREDNISolone NA SUCC 1000 MG/8 ML VIAL IVPB ONE (19:24)
[2020-03-03 19:38] LABS: ERYTHROCYTE SEDIMENTATION RATE 2 mm/hr (0-10)
[2020-03-03] MEDS ORDERED: methylPREDNISolone NA SUCC 125 MG/2 ML VIAL ONE (19:56)
[2020-03-03] MEDS ORDERED: ACETAMINOPHEN 325 MG TABLET (FP) PO ONE (20:05)
[2020-03-03] MEDS ORDERED: ACETAMINOPHEN 325 MG TABLET (FP) ONE (20:54)
[2020-03-03] MEDS ORDERED: SODIUM CHLORIDE 500 ML IV STA (22:58)
[2020-03-03 23:32] LABS: COCAINE, UR NEGATIVE ng/ml (CUTOFF=300); URINE BENZODIAZEPINES NEGATIVE ng/ml (CUTOFF=200)
[2020-03-03 23:33] LABS: METHADONE, UR NEGATIVE ng/ml (CUTOFF=300); PHENCYCLIDINE,URINE NEGATIVE ng/ml (CUTOFF=25); URINE BARBITURATES NEGATIVE ng/ml (CUTOFF=200)
[2020-03-03 23:34] LABS: URINE AMPHETAMINES NEGATIVE ng/ml (CUTOFF=500)
[2020-03-03 23:45] LABS: OPIATES, URI NEGATIVE ng/ml (CUTOFF=300)
[2020-03-04] MEDS ORDERED: ACETAMINOPHEN 325 MG TABLET (FP) PO PRN (00:13)
[2020-03-04 01:14] LABS: URINE APPEARANCE CLEAR; URINE BILIRUBIN NEGATIVE (NEGATIVE); URINE COLOR YELLOW; URINE GLUCOSE (UA) NEGATIVE (NEGATIVE); URINE KETONE TRACE (NEGATIVE); URINE LEUK ESTERASE NEGATIVE (NEGATIVE); URINE NITRITE NEGATIVE (NEGATIVE); URINE PROTEIN NEGATIVE (NEGATIVE); URINE UROBILINOGEN 0.2 mg/dL (0.2-1.0)
[2020-03-04] MEDS ORDERED: PANTOPRAZOLE 40 MG TABLET ONE (09:26)
[2020-03-04] MEDS ORDERED: ENOXAPARIN NA (PORCINE) 40 MG/0.4 ML DISP.SYRIN SQ ONE (09:26)
[2020-03-04] MEDS ORDERED: methylPREDNISolone NA SUCC 1000 MG/8 ML VIAL ONE (09:26)
[2020-03-04] MEDS: ENOXAPARIN NA (PORCINE) 40 MG/0.4 ML DISP.SYRIN SQ SCH (09:47)
[2020-03-04] MEDS: methylPREDNISolone NA SUCC 125 MG/2 ML VIAL IVPB SCH (09:48)
[2020-03-04] MEDS: PANTOPRAZOLE 40 MG TABLET PO SCH (09:48)
[2020-03-04 12:34] LABS: HEMOGLOBIN 13.7 GM/dL (11.7-16.9); MCH 31.5 pg (25.7-33.7); MCHC 34.3 g/dl (32.0-35.9); MEAN CELL VOLUME 91.7 fl (80-96); MEAN PLT VOLUME 9.9 fl (7.5-11.1); PLATELET COUNT 148 K/MM3 (134-434); RBC 4.36 M/mm3 (4.00-5.60); RDW 13.6 % (11.9-15.9); WHITE BLOOD COUNT 12.7 K/mm3 (4.0-10.0)
[2020-03-04 12:56] LABS: POTASSIUM 4.1 mmol/L (3.5-5.1)
[2020-03-04 12:58] LABS: CALCIUM 8.6 mg/dL (8.5-10.1)
[2020-03-04 12:59] LABS: BLOOD UREA NITROGEN 23.2 mg/dL (7-18)
[2020-03-04 13:02] LABS: CREATININE 0.8 mg/dL (0.55-1.3)
[2020-03-04 13:03] LABS: PHOSPHOROUS 2.5 mg/dL (2.5-4.9)
[2020-03-05 00:21] VITALS: BMI 20.1
[2020-03-05 08:46] LABS: BASO % 0.2 % (0-2.0); EOS % 0.2 % (0-4.5); HEMATOCRIT 38.5 % (35.4-49); HEMOGLOBIN 13.3 GM/dL (11.7-16.9); LYMPH % 9.4 % (8-40); MCH 31.7 pg (25.7-33.7); MCHC 34.5 g/dl (32.0-35.9); MEAN CELL VOLUME 91.8 fl (80-96); MEAN PLT VOLUME 10.4 fl (7.5-11.1); MONO % 6.1 % (3.8-10.2); NEUT % 84.1 % (42.8-82.8); PLATELET COUNT 106 K/MM3 (134-434); RDW 13.7 % (11.9-15.9); WHITE BLOOD COUNT 17.2 K/mm3 (4.0-10.0)
[2020-03-05 09:09] LABS: POTASSIUM 3.9 mmol/L (3.5-5.1)
[2020-03-05 09:22] LABS: CALCIUM 8.8 mg/dL (8.5-10.1)
[2020-03-05 09:23] LABS: ALBUMIN 3.3 g/dl (3.4-5.0); BLOOD UREA NITROGEN 16.8 mg/dL (7-18)
[2020-03-05] MEDS: methylPREDNISolone NA SUCC 125 MG/2 ML VIAL IVPB SCH ×2 (09:23→21:25)
[2020-03-05] MEDS: ENOXAPARIN NA (PORCINE) 40 MG/0.4 ML DISP.SYRIN SQ SCH (09:24)
[2020-03-05] MEDS: PANTOPRAZOLE 40 MG TABLET PO SCH (09:24)
[2020-03-05 09:26] LABS: CREATININE 0.8 mg/dL (0.55-1.3)
[2020-03-05 09:27] LABS: BILIRUBIN,TOTAL 0.2 mg/dL (0.2-1)
[2020-03-05 09:31] LABS: TOT PROT 5.8 g/dl (6.4-8.2)
[2020-03-05] MEDS ORDERED: DIVALPROEX NA *ER* EXTEND REL 500 MG TABLET.SA (FP) PO ONE (15:30)
[2020-03-06 09:19] LABS: BASO % 0.5 % (0-2.0); HEMATOCRIT 40.1 % (35.4-49); HEMOGLOBIN 13.7 GM/dL (11.7-16.9); LYMPH % 1.1 % (8-40); MCH 31.5 pg (25.7-33.7); MEAN CELL VOLUME 92.7 fl (80-96); MONO % 1.5 % (3.8-10.2); NEUT % 96.9 % (42.8-82.8); PLATELET COUNT 147 K/MM3 (134-434); RBC 4.33 M/mm3 (4.00-5.60); RDW 13.8 % (11.9-15.9); WHITE BLOOD COUNT 17.8 K/mm3 (4.0-10.0)
[2020-03-06] MEDS: methylPREDNISolone NA SUCC 125 MG/2 ML VIAL IVPB SCH ×2 (09:20→21:39)
[2020-03-06] MEDS: ENOXAPARIN NA (PORCINE) 40 MG/0.4 ML DISP.SYRIN SQ SCH (09:20)
[2020-03-06] MEDS: PANTOPRAZOLE 40 MG TABLET PO SCH (09:20)
[2020-03-06] MEDS: DIVALPROEX NA *ER* EXTEND REL 500 MG TABLET.SA (FP) PO SCH (09:20)
[2020-03-06 09:25] LABS: POTASSIUM 3.6 mmol/L (3.5-5.1)
[2020-03-06 09:28] LABS: CALCIUM 8.6 mg/dL (8.5-10.1)
[2020-03-06 09:29] LABS: ALBUMIN 3.4 g/dl (3.4-5.0); BLOOD UREA NITROGEN 22.6 mg/dL (7-18)
[2020-03-06 09:32] LABS: CREATININE 1.1 mg/dL (0.55-1.3)
[2020-03-06 09:33] LABS: BILIRUBIN,TOTAL 0.8 mg/dL (0.2-1); TOT PROT 6.1 g/dl (6.4-8.2)
[2020-03-06 10:19] LABS: ANISOCYTOSIS 1+; MACROCYTOSIS 0; PLATELET ESTIMATE DECREASED
[2020-03-07] MEDS: methylPREDNISolone NA SUCC 125 MG/2 ML VIAL IVPB SCH ×2 (09:57→21:44)
[2020-03-07] MEDS: ENOXAPARIN NA (PORCINE) 40 MG/0.4 ML DISP.SYRIN SQ SCH (09:57)
[2020-03-07] MEDS: PANTOPRAZOLE 40 MG TABLET PO SCH (09:57)
[2020-03-07] MEDS: DIVALPROEX NA *ER* EXTEND REL 500 MG TABLET.SA (FP) PO SCH (09:59)
[2020-03-08 08:20] LABS: POTASSIUM 3.9 mmol/L (3.5-5.1)
[2020-03-08 08:26] LABS: CALCIUM 8.6 mg/dL (8.5-10.1)
[2020-03-08 08:27] LABS: BLOOD UREA NITROGEN 19.1 mg/dL (7-18); MAGNESIUM 2.2 mg/dL (1.8-2.4)
[2020-03-08 08:30] LABS: CREATININE 0.9 mg/dL (0.55-1.3)
[2020-03-08 08:31] LABS: BILIRUBIN,TOTAL 0.2 mg/dL (0.2-1); TOT PROT 5.5 g/dl (6.4-8.2)
[2020-03-08 08:52] LABS: BASO % 0.1 % (0-2.0); HEMOGLOBIN 13.3 GM/dL (11.7-16.9); LYMPH % 2.2 % (8-40); MCH 31.7 pg (25.7-33.7); MEAN CELL VOLUME 93.3 fl (80-96); MEAN PLT VOLUME 10.2 fl (7.5-11.1); MONO % 2.8 % (3.8-10.2); NEUT % 94.9 % (42.8-82.8); PLATELET COUNT 134 K/MM3 (134-434); RBC 4.19 M/mm3 (4.00-5.60); RDW 13.7 % (11.9-15.9); WHITE BLOOD COUNT 14.4 K/mm3 (4.0-10.0)
[2020-03-08] MEDS: DIVALPROEX NA *ER* EXTEND REL 500 MG TABLET.SA (FP) PO SCH (11:09)
[2020-03-08] MEDS: ENOXAPARIN NA (PORCINE) 40 MG/0.4 ML DISP.SYRIN SQ SCH (11:11)
[2020-03-08] MEDS: PANTOPRAZOLE 40 MG TABLET PO SCH (11:11)
[2020-03-08] MEDS: methylPREDNISolone NA SUCC 125 MG/2 ML VIAL IVPB SCH ×2 (11:17→21:31)
[2020-03-08 14:19] LABS: PLATELET ESTIMATE SLT DECREASE
[2020-03-09 09:02] LABS: BASO % 0.1 % (0-2.0); HEMATOCRIT 38.1 % (35.4-49); HEMOGLOBIN 13.3 GM/dL (11.7-16.9); LYMPH % 2.5 % (8-40); MCH 31.7 pg (25.7-33.7); MCHC 34.8 g/dl (32.0-35.9); MEAN CELL VOLUME 91.1 fl (80-96); MEAN PLT VOLUME 10.4 fl (7.5-11.1); MONO % 3.9 % (3.8-10.2); NEUT % 93.5 % (42.8-82.8); PLATELET COUNT 134 K/MM3 (134-434); RBC 4.18 M/mm3 (4.00-5.60); RDW 13.8 % (11.9-15.9); WHITE BLOOD COUNT 15.7 K/mm3 (4.0-10.0)
[2020-03-09 09:16] LABS: ALBUMIN 3.1 g/dl (3.4-5.0); BLOOD UREA NITROGEN 22.6 mg/dL (7-18); CALCIUM 8.9 mg/dL (8.5-10.1)
[2020-03-09 09:19] LABS: CREATININE 0.9 mg/dL (0.55-1.3)
[2020-03-09 09:21] LABS: BILIRUBIN,TOTAL 0.3 mg/dL (0.2-1); TOT PROT 5.7 g/dl (6.4-8.2)
[2020-03-09] MEDS ORDERED: PT OWN MED DRAWER 7, Y5N ONE (09:25)
[2020-03-09] MEDS: ENOXAPARIN NA (PORCINE) 40 MG/0.4 ML DISP.SYRIN SQ SCH (09:31)
[2020-03-09] MEDS: DIVALPROEX NA *ER* EXTEND REL 500 MG TABLET.SA (FP) PO SCH (09:31)
[2020-03-09] MEDS: methylPREDNISolone NA SUCC 125 MG/2 ML VIAL IVPB SCH (09:31)
[2020-03-09] MEDS: PANTOPRAZOLE 40 MG TABLET PO SCH (09:31)
[2020-03-09 10:55] LABS: ANISOCYTOSIS 0; MACROCYTOSIS 0; PLATELET ESTIMATE DECREASED
[2020-03-09 11:24] VITALS: TEMP 98.1
[2020-03-09 14:45] VITALS: BP 121/55; PULSE 59
== END 2020-03-09 17:21 | disposition home or self-care (01) | DRG 43 ==
LOC: JER 17:11 → JERBED 19:21 → J6S 03-04 22:34
PROVIDERS: ADMIT Internal Medicine; ATTEND Internal Medicine
DX: G35 Multiple sclerosis (principal); G43.909 Migraine, unspecified, not intractable, without status migrainosus; F17.210 Nicotine dependence, cigarettes, uncomplicated; F12.90 Cannabis use, unspecified, uncomplicated; F14.10 Cocaine abuse, uncomplicated; F11.10 Opioid abuse, uncomplicated; F32.9 Major depressive disorder, single episode, unspecified
CPT/HCPCS: 36415; 70553-TC; 80048; 80053; 80061; 80307; 81003; 82306; 82607; 83036; 83721; 83735; 84100; 84439; 84443; 84484; 85025; 85027; 85651; 86140; 86780; 93005; 93010; 99285-25; A9579; C9803; U0003